=== PATIENT | female | born 1995 | race Caucasian/White ===

== ENCOUNTER 2019-02-27 02:06 | Emergency (ER) | payer OTHER ==
[~2019-02-27] VITALS: Ht 167.6 cm; Wt 81.6 kg
[2019-02-27 02:08] VITALS: BP_SYST 110
--- NOTE | 2019-02-27 02:16 | NUR ---
pPatient to ER bed 6 to gown for evaluation. Side rails up.
--- NOTE | 2019-02-27 02:20 | NUR ---
Pt C/O of laceration to the posterior head. Pt states she fell out of bed while sleeping and struck her head against the bookshelf. Pt denies KO and states she was nauseous after the event. Pt has small laceraction to the back of the head, bleeding is controlled. Vital signs stable, will continue to monitor.
--- NOTE | 2019-02-27 02:29 | NUR ---
ER Dr. Lee at bedside examining patient.
[2019-02-27] MEDS ORDERED: DIPH-TET-PERTUS Vaccine 0.5 ML VIAL (ADACEL) I.M. ONE (02:45)
[2019-02-27 02:49] VITALS: BP_SYST 110
--- NOTE | 2019-02-27 02:52 | NUR ---
Patient given written and verbal discharge instructions and verbalizes understanding. ER MD discussed with patient the results and treatment provided. Patient in stable condition. ID arm band removed. Patient educated on pain management and to follow up with PMD. Pain Scale 0/10. Opportunity for questions provided and answered. Medication side effect fact sheet provided.
== END 2019-02-27 02:49 | disposition home or self-care (01) ==
LOC: SED 02:06
DX: S09.90XA Unspecified injury of head, initial encounter (principal); W06.XXXA Fall from bed, initial encounter; Y93.89 Activity, other specified; Y92.89 Other specified places as the place of occurrence of the external cause; Y99.8 Other external cause status
CPT/HCPCS: 90715; 99283

== ENCOUNTER 2021-06-23 12:29 | Emergency (ER) | payer OTHER ==
[~2021-06-23] VITALS: Ht 167.6 cm; Wt 83.9 kg
[2021-06-23 12:30] VITALS: BP_SYST 132
--- NOTE | 2021-06-23 12:40 | NUR ---
PT TO REMAIN IN THE ER LOBBY UNTIL ER BED BECOMES AVAILABLE.
--- NOTE | 2021-06-23 13:40 | NUR ---
Patient to ER bed 6 to gown for evaluation. Side rails up.
[2021-06-23 13:42] LABS: BILIRUBIN,URINE NEGATIVE (NEGATIVE); BLOOD, URINE NEGATIVE (NEGATIVE); CLARITY/URINE CLOUDY (CLEAR); COLOR,URINE YELLOW (YELLOW); GLUCOSE,URINE NEGATIVE (NEGATIVE); KETONES,URINE TRACE (NEGATIVE); LEUKOCYTE ESTERASE ,URINE NEGATIVE (NEGATIVE); NITRITE, URINE NEGATIVE (NEGATIVE); PROTEIN URINE NEGATIVE (NEGATIVE); UROBILINOGEN,URINE 0.2 (0.2-1.0)
--- NOTE | 2021-06-23 13:44 | NUR ---
Pt came into ER with complaint of abdominal pain X2days 07/31 with N/V/D. Pt is AAOX4 speaking full sentences. VSS atatched to monitor in [facility] with side rails up.
--- NOTE | 2021-06-23 13:45 | NUR ---
# 20 gauge angiocath placed to LAC. Use of asceptic technique. Opsite placed over site. Blood return noted. Blood for lab drawn from site. Flushed with 10 cc of normal saline. No evidence of infiltration noted. Patient tolerated well.
--- NOTE | 2021-06-23 13:45 | NUR ---
Blood collected and sent to lab.
[2021-06-23] MEDS ORDERED: NACL 0.9% 1,000 ML IV ONE (14:00)
--- NOTE | 2021-06-23 14:06 | NUR ---
Wayne Gonzalez at bedside examining patient.
[2021-06-23 14:09] LABS: BASOPHILS % (AUTO) 0.4 % (0.0-2.0); EOSINOPHILS % (AUTO) 0.2 % (0.0-4.0); HEMATOCRIT 44.8 % (36-48); HEMOGLOBIN 15.7 g/dL (12.0-16.0); LYMPHOCYTES # (AUTO) 0.2 K/uL (1.0-5.5); LYMPHOCYTES % (AUTO) 1.8 % (20.5-51.5); MEAN CORPUSCULAR HEMOGLOBIN 33 pg (27-31); MEAN CORPUSCULAR HGB CONC 35 % (32-36); MEAN CORPUSCULAR VOLUME 95 fL (79.0-98.0); MONOCYTES # (AUTO) 0.3 K/uL (0.0-1.0); MONOCYTES % (AUTO) 3.4 % (1.7-9.3); NEUTROPHILS # (AUTO) 9.3 K/uL (1.8-7.7); NEUTROPHILS % (AUTO) 94.2 % (40.0-70.0); PLATELET COUNT (AUTO) 209 K/uL (130-430); RED BLOOD CELL COUNT(AUTO) 4.74 MIL/uL (4.2-6.2); RED CELL DISTRIBUTION WIDTH 12.6 % (9.0-15.0); WHITE BLOOD COUNT (AUTO) 9.9 K/uL (4.8-10.8)
[2021-06-23 14:11] LABS: CALCIUM 9.1 mg/dL (8.4-11.0); CREATININE 0.89 mg/dL (0.55-1.30); POTASSIUM 3.7 mmol/L (3.5-5.1)
[2021-06-23] MEDS ORDERED: ONDANSETRON HCL 4 MG/2 ML VIAL IVP ONE (14:15)
[2021-06-23 14:17] LABS: ALBUMIN 4.2 g/dL (3.4-4.8); TOTAL BILIRUBIN 1.1 mg/dL (0.0-1.0)
[2021-06-23] MEDS ORDERED: MAG HYDROX/AL HYDROX/SIMETH 30 ML, DICYCLOMINE HCL 20 MG, LIDOCAINE VISCOUS 2% 15ML (PO... PO ONE ×3 (14:30)
--- NOTE | 2021-06-23 14:30 | NUR ---
ER at bedside examining patient.
[2021-06-23] MEDS ORDERED: OMEP40CA20 PO (15:16)
[2021-06-23] MEDS ORDERED: ONDA-8 TL (15:16)
[2021-06-23] MEDS ORDERED: TRAM50TA2 PO (15:16)
--- NOTE | 2021-06-23 15:19 | NUR ---
Pt resting in [facility] VSS no distress noted.
[2021-06-23 15:51] VITALS: BP_SYST 132
--- NOTE | 2021-06-23 15:51 | NUR ---
Patient given written and verbal discharge instructions and verbalizes understanding. ER MD discussed with patient the results and treatment provided. Patient in stable condition. ID arm band removed. IV catheter removed intact and dressing applied, no active bleeding. Rx of omeprazole, ondansetron,tramadol given. Patient educated on pain management and to follow up with PMD. Pain Scale 0/10. Opportunity for questions provided and answered. Medication side effect fact sheet provided.
== END 2021-06-23 15:51 | disposition home or self-care (01) ==
LOC: SED 12:29
DX: K29.70 Gastritis, unspecified, without bleeding (principal); Z79.899 Other long term (current) drug therapy
CPT/HCPCS: 36415; 80053; 81003; 81025; 83690; 85025; 96361; 96374; 99283; J2001; J2405; J7030

== ENCOUNTER 2023-05-02 21:35 | Emergency (ER) | payer OTHER ==
[~2023-05-02] VITALS: Ht 170.2 cm; Wt 86.2 kg
[~2023-05-02 21:35] MED LIST: OMEP40CA20 PO; ONDA-8 TL; TRAM50TA2 PO
[2023-05-02 21:50] VITALS: BP_SYST 125; PULSE 94; RESP 20; TEMP 97.8; O2SAT 96
[2023-05-03] MEDS ORDERED: NAPR-690 PO (07:40)
== END 2023-05-02 22:46 | disposition left against medical advice (07) ==
LOC: SED 21:35
DX: M54.50 Low back pain, unspecified (principal); R07.9 Chest pain, unspecified; Z53.21 Procedure and treatment not carried out due to patient leaving prior to being seen by health care provider
CPT/HCPCS: 93005; 99281

== ENCOUNTER 2023-05-03 06:54 | Emergency (ER) | payer OTHER ==
[~2023-05-03] VITALS: Ht 175.3 cm; Wt 81.6 kg
--- NOTE | 2023-05-03 07:11 | NUR ---
SEEN BY DR WILSON IN TRIAGE ROOM
[2023-05-03] MEDS ORDERED: NAPR-690 PO (07:40)
[2023-05-03 08:07] VITALS: BP_SYST 136; PULSE 85; RESP 18; TEMP 98; O2SAT 98
--- NOTE | 2023-05-03 08:16 | NUR ---
Patient given written and verbal discharge instructions and verbalizes understanding. ER MD discussed with patient the results and treatment provided. Patient in stable condition. ID arm band removed. Rx of NAPROXYN given. Patient educated on pain management and to follow up with PMD. Pain Scale . Opportunity for questions provided and answered. Medication side effect fact sheet provided.
[2023-05-03 08:27] VITALS: BP_SYST 128; PULSE 85; RESP 18; TEMP 98; O2SAT 98
== END 2023-05-03 08:16 | disposition home or self-care (01) ==
LOC: SED 06:54
DX: S13.4XXA Sprain of ligaments of cervical spine, initial encounter (principal); S33.5XXA Sprain of ligaments of lumbar spine, initial encounter; M25.572 Pain in left ankle and joints of left foot; J45.909 Unspecified asthma, uncomplicated; Z79.899 Other long term (current) drug therapy; V89.2XXA Person injured in unspecified motor-vehicle accident, traffic, initial encounter; Y93.89 Activity, other specified; Y92.89 Other specified places as the place of occurrence of the external cause; Y99.8 Other external cause status
CPT/HCPCS: 72040-TC; 72100-TC; 99284